=== PATIENT | male | born 1995 | race Asian ===

== ENCOUNTER 2022-04-06 18:21 | Emergency (ER) | payer OTHER ==
[~2022-04-06] VITALS: Ht 170.2 cm; Wt 83.9 kg
[2022-04-06 18:21] VITALS: BP_SYST 120
--- NOTE | 2022-04-06 18:21 | NUR ---
BROUGHT BACK TO OUTSIDE TENT AND TRIAGED. AWAITING AVAILABLE ER BED.
[2022-04-06 19:51] VITALS: BP_SYST 120
== END 2022-04-06 19:51 | disposition home or self-care (01) ==
LOC: SED 18:21
DX: U07.1 COVID-19 (principal); J20.9 Acute bronchitis, unspecified
CPT/HCPCS: 71045; 99283